=== PATIENT | male | born 1945 | race Caucasian/White ===

== ENCOUNTER 2017-05-31 08:53 | Day surgery (SDC) | payer OTHER, BC ==
[2017-05-28 12:42] VITALS: BMI 35.7
[2017-05-31] MEDS ORDERED: PROPOFOL 20 ML ONE (09:10)
[2017-05-31 11:48] VITALS: TEMP 98.2
[2017-05-31 12:14] VITALS: BP 127/63; PULSE 65
== END 2017-05-31 12:20 | disposition home or self-care (01) ==
LOC: FASU-ENDO 08:53
PROVIDERS: ATTEND Internal Medicine Gastroenterology
PROC: 0DJD8ZZ Inspection of Lower Intestinal Tract, Via Natural or Artificial Opening Endoscopic (ICD-10-PCS; principal; 2017-05-31 11:20)
DX: Z12.11 Encounter for screening for malignant neoplasm of colon (principal); Z86.010 Personal history of colon polyps; K57.30 Diverticulosis of large intestine without perforation or abscess without bleeding

== ENCOUNTER 2018-10-31 10:27 | Emergency (ER) | payer OTHER, BC ==
--- NOTE | 2018-10-31 10:47 | PDOC ---
Attending Attestation - Resident Resident Name: Ricki Corey - ED Attending Attestation I have performed the following: I have examined & evaluated the patient, The case was reviewed & discussed with the resident, I agree w/resident's findings & plan, Exceptions are as noted - HPI HPI: 10/31/18 11:03 73yo male presents ambulatory with his daughter c/o constipation. Pt states last bm was 10 days ago other than an episode of a hard "meatball sized" stool yesterday - which required straining. no f/c. No urinary complaints. No n/v. Pt states a few days after the constipation started he tried miralax and colace and had some diarrhea, so he stopped the meds and started then had the hard bm yesterday. States he feels full and feels he needs to go. Pt denies cp/sob. Pt with dry mm on exam - admits to drinking a lot of coffee and less water. Pt denies flank pain. Pt with hx of prostate sx and hernia repair in the past. - Physicial Exam PE: 10/31/18 11:07 Gen: aaox3, nad, dry mm, cracked tongue heart: +s1s2 reg lungs: cta b/l abd: soft, nt, mild distension, +hyperactive bs ext: +1 pitting edema to LE - Medical Decision Making 10/31/18 10:47 I, Dr. Gilma Wade, DO, attest that this document has been prepared under my direction and personally reviewed by me in its entirety. I further attest, that it accurately reflects all work, treatment, procedures and medical decision -making performed by me. 10/31/18 11:08 a/p: 73yo male with constipation -abd is soft, nt, but distended -pt appears dehydrated -will send labs, ct abd/pelvis - gentle ivf hydration -if constipation on ct will give enema -pt currently not in pain -will monitor and reassess -GI: Dr. Mulligan 10/31/18 13:26 pt currently drinking mag citrate 10/31/18 14:10 pt has had 3 bm in the ED 10/31/18 15:16 pt ambulatory in the ED pt feels better daughter at the bedside- discussed ct imaging including the R pleural effusion/ masslike atelectasis daugther will call pmd and dr. mulligan for follow up stable for dc to home
[2018-10-31 10:53] VITALS: BP 140/87; PULSE 72; TEMP 97.9; BMI 35.5
[2018-10-31] MEDS ORDERED: SODIUM CHLORIDE 0.9% 1000 ML INFUS.BAG IV ONE (11:05)
--- NOTE | 2018-10-31 11:20 | PDOC ---
History of Present Illness - General Chief Complaint: Constipation Stated Complaint: CONSTIPATION Time Seen by Provider: 10/31/18 10:29 History Source: Patient Exam Limitations: No Limitations - History of Present Illness Initial Comments: 10/31/18 11:15 73M who presents with 10 days of constipation. The patient is with his daughter who provides some of the history. The patient states that he last had a "big" bowel movement 3 days ago. He denies abdominal surgery. Pt states that he had a "meatball sized" bowel movement 3 days ago. Denies nausea, vomiting, fever, chills, rectal bleeding. Pt states he has a hx of constipation but tries miralax without avail. Past History - Past Medical History Allergies/Adverse Reactions: Allergies Allergy/AdvReac Type Severity Reaction Status Date / Time aspirin Allergy Verified 10/31/18 10:35 metoprolol Allergy Verified 02/27/12 14:13 ramipril Allergy Verified 02/27/12 14:13 GLEEVAC Allergy Severe Rash Uncoded 05/28/17 12:43 Home Medications: Ambulatory Orders Diazepam [Valium] 5 mg PO QID PRN 02/27/12 Nebivolol HCl [Bystolic] 5 mg PO DAILY 02/27/12 Ziprasidone [Geodon] 160 mg PO HS 02/27/12 Zolpidem Tartrate [Ambien] 10 mg PO HS 02/27/12 Nilotinib HCl [Tasigna] 1 each PO DAILY 05/28/17 Clomipramine HCl [Anafranil] 50 mg PO HS 05/31/17 Acetaminophen [Tylenol Arthritis] 650 mg PO BID PRN 10/31/18 Atorvastatin Ca 10/31/18 Docusate Sodium [Colace] 100 mg PO DAILY 10/31/18 Polyethylene Glycol 3350 [Miralax (For Daily Use) -] 17 gm PO DAILY 10/31/18 Anemia: No Asthma: No Cancer: Yes (CML) Cardiac Disorders: No CVA: No COPD: No CHF: No Dementia: No Diabetes: No GI Disorders: Yes (REFLUX, CHRONIC CONSTIPATION, DIVERTICULOSIS) Disorders: No HTN: Yes Hypercholesterolemia: Yes Liver Disease: No Seizures: No Thyroid Disease: No Other medical history: PLEURAL EFFUSIONS, ARTHRITIS - Surgical History Abdominal Surgery: No Appendectomy: No Cardiac Surgery: No Cholecystectomy: No Lung Surgery: No Neurologic Surgery: No Orthopedic Surgery: No - Suicide/Smoking/Psychosocial Hx Smoking Status: No Smoking History: Former smoker Have you smoked in the past 12 months: No Number of Cigarettes Smoked Daily: 0 Information on smoking cessation initiated: No Hx Alcohol Use: Yes Drug/Substance Use Hx: No Substance Use Type: None Hx Substance Use Treatment: No Review of Systems - Review of Systems Able to Perform ROS?: Yes Comments:: 10/31/18 11:18 GENERAL/CONSTITUTIONAL: No fever or chills. No weakness. HEAD, EYES, EARS, NOSE AND THROAT: No change in vision. No ear pain or discharge. No sore throat. CARDIOVASCULAR: No chest pain, palpitations, or lightheadedness. RESPIRATORY: No cough, wheezing, shortness of breath, or hemoptysis. GASTROINTESTINAL: + for constipation. No nausea, vomiting, diarrhea, or abdominal pain. GENITOURINARY: No dysuria, frequency, hematuria, or change in urination. MUSCULOSKELETAL: No joint or muscle swelling or pain. No neck or back pain. SKIN: No rash or lesions. NEUROLOGIC: No headache, numbness, tingling, focal weakness, loss of consciousness, or change in strength/sensation. Is the patient limited Albanian proficient: No *Physical Exam - Vital Signs Last Vital Signs Temp Pulse Resp BP Pulse Ox 97.9 F 72 18 140/87 96 10/31/18 10:28 10/31/18 10:28 10/31/18 10:28 10/31/18 10:28 10/31/18 10:28 - Physical Exam Comments: 10/31/18 11:18 GENERAL: Well developed, well nourished. Awake and alert. No acute distress. HEENT: Normocephalic, atraumatic. Hearing grossly normal. Moist mucous membranes. PERRLA, EOMI. No conjunctival pallor. Sclera are non-icteric. NECK: Supple. Full ROM. No JVD. CARDIOVASCULAR: Regular rate and rhythm. No murmurs, rubs, or gallops. PULMONARY: No evidence of respiratory distress. Lungs clear to auscultation bilaterally. No wheezing, rales or rhonchi. ABDOMINAL: Soft. Non-tender. Non-distended. No rebound or guarding. MUSCULOSKELETAL: Normal range of motion at all joints. No bony deformities or tenderness. EXTREMITIES: No cyanosis. No clubbing. No edema. No calf tenderness or swelling. SKIN: Warm and dry. Normal capillary refill. No rashes. No jaundice. NEUROLOGICAL: Alert, awake, appropriate. Cranial nerves 2-12 grossly intact. Normal speech. Gait is normal without ataxia. PSYCHIATRIC: Cooperative. Good eye contact. Appropriate mood and affect. ED Treatment Course - LABORATORY CBC & Chemistry Diagram: 10/31/18 11:50 10/31/18 11:50 - RADIOLOGY Radiology Studies Ordered: Category Date Time Status ABDOMEN & PELVIS CT W/O CONTR [CT] Stat CT Scan 10/31/18 10:43 Ordered Medical Decision Making - Medical Decision Making 10/31/18 11:18 73M with h/o recurrent constipation who presents with constipation. Due to 10 days of constipation, will image and obtain labs. Pending labs and imaging. 10/31/18 12:46 CT shows atelectasis w/ effusion in lung. Family knows of effusion d/t h/o CML. Negative for other pathology. Constipation appreciated on CT. Will give mag citrate and reassess. 10/31/18 15:09 Pt noted to have multiple BM's and feels "much better". Will discuss CT results and d/c with PCP f/u. *DC/Admit/Observation/Transfer Diagnosis at time of Disposition: Constipation Qualifiers: Constipation type: unspecified constipation type Qualified Code(s): K59.00 - Constipation, unspecified - Discharge Dispostion Disposition: HOME Condition at time of disposition: Good Decision to Admit order: No - Referrals Referrals: Angélica Mederos MD [Primary Care Provider] - - Patient Instructions Printed Discharge Instructions: DI for Constipation Additional Instructions: Your ER visit is not complete until your follow up with your primary care physician. Please follow up with your primary care physician in 1-2 days. Please also follow up with Dr. Mulligan within 7 days. Please return to the ER if you have any signs or symptoms of chest pain, shortness of breath, uncontrollable fever, chills, nausea, vomiting, numbness, tingling, or weakness in any part of your body, changes in vision, or slurred speech. Please take your medications as prescribed. Please return to the ER if symptoms persist, worsen, or new symptoms arise. - Post Discharge Activity
[2018-10-31 12:29] LABS: ALBUMIN 3.9 g/dl (3.4-5.0); ALK PHOS 111 U/L (45-117); ANION GAP 13 MMOL/L (8-16); BILIRUBIN,TOTAL 0.3 mg/dl (0.2-1); BLOOD UREA NITROGEN 16 mg/dl (7-18); CALCIUM 8.8 mg/dl (8.5-10); CHLORIDE 99 mmol/L (98-107); CO2 25 mmol/L (21-32); CREATININE 1.5 mg/dl (0.55-1.3); GLUCOSE,RANDOM 99 mg/dl (74-106); POTASSIUM 4.6 mmol/L (3.5-5.1); SGOT/AST 38 U/L (15-37); SGPT/ALT 30 U/L (13-61); SODIUM 137 mmol/L (136-145); TOT PROT 7.4 g/dl (6.4-8.2)
[2018-10-31] MEDS ORDERED: MAGNESIUM CITRATE 300 ML BOTTLE PO ONE (12:41)
[2018-10-31 12:47] LABS: BASO % 0.3 % (0-2.0); EOS % 2.5 % (0-4.5); HEMATOCRIT 37.5 % (35.4-49); HEMOGLOBIN 12.2 GM/dl (11.7-16.9); LYMPH % 14.9 % (8-40); MCH 26.5 pg (25.7-33.7); MCHC 32.6 g/dl (32.0-35.9); MEAN CELL VOLUME 81.3 fl (80-96); MONO % 7.6 % (3.8-10.2); NEUT % 74.7 % (42.8-82.8); PLATELET COUNT 284 K/MM3 (134-434); RBC 4.61 M/mm3 (4.00-5.60); RDW 13.7 % (11.9-15.9); WHITE BLOOD COUNT 9.7 K/mm3 (4.0-10.8)
[2018-10-31] MEDS ORDERED: SODIUM PHOSPHATE/NA BIPHOS 133 ML ENEMA PR ONE (12:47)
[2018-10-31] MEDS ORDERED: MAGNESIUM CITRATE 300 ML BOTTLE ONE (12:56)
== END 2018-10-31 15:24 | disposition home or self-care (01) ==
LOC: FER 10:27
PROC: 3E0337Z Introduction of Electrolytic and Water Balance Substance into Peripheral Vein, Percutaneous Approach (ICD-10-PCS; principal; 2018-10-31)
DX: K59.00 Constipation, unspecified (principal); Z85.6 Personal history of leukemia; K21.9 Gastro-esophageal reflux disease without esophagitis; Z87.891 Personal history of nicotine dependence
CPT/HCPCS: 36415; 74176-TC; 80053; 85025; 99283-25; J7030

== ENCOUNTER 2020-07-29 12:27 | Inpatient (IN) | payer OTHER, BC ==
[2020-07-29] MEDS ORDERED: SODIUM CHLORIDE 250 ML IV STA ×2 (12:39→14:00)
[2020-07-29 12:47] VITALS: BMI 38.0
[2020-07-29 12:59] LABS: VENOUS BASE EXCESS -6.8 mmol/L (-2-2); VENOUS O2 SATURATION 32.4 % (70-80); VENOUS PCO2 49.2 mmHg (38-52); VENOUS PH 7.237 (7.310-7.410)
[2020-07-29 13:08] LABS: BASO % 0.2 % (0-2.0); EOS % 0.4 % (0-4.5); HEMATOCRIT 29.6 % (35.4-49); HEMOGLOBIN 9.3 GM/dL (11.7-16.9); LYMPH % 5.9 % (8-40); MCH 25.7 pg (25.7-33.7); MCHC 31.4 g/dl (32.0-35.9); MEAN PLT VOLUME 8.7 fl (7.5-11.1); MONO % 4.3 % (3.8-10.2); NEUT % 89.2 % (42.8-82.8); PLATELET COUNT 292 K/MM3 (134-434); RBC 3.61 M/mm3 (4.00-5.60); RDW 14.7 % (11.9-15.9); WHITE BLOOD COUNT 19.9 K/mm3 (4.0-10.0)
[2020-07-29 13:19] LABS: INR 1.12 (0.83-1.09); PROTHROMBIN TIME (PATIENT) 13.7 SEC (9.7-13.0)
[2020-07-29 13:22] LABS: ACTIVATED PTT 28.3 SECONDS (25.2-36.5)
[2020-07-29 13:26] LABS: CHLORIDE 107 mmol/L (98-107); POTASSIUM 4.2 mmol/L (3.5-5.1); SODIUM 139 mmol/L (136-145)
[2020-07-29 13:28] LABS: CALCIUM 8.1 mg/dL (8.5-10.1)
[2020-07-29 13:29] LABS: ANION GAP 10 MMOL/L (8-16); CO2 22 mmol/L (21-32); GLUCOSE,RANDOM 200 mg/dL (74-106)
[2020-07-29 13:32] LABS: CREATININE 1.6 mg/dL (0.55-1.3); SGOT/AST 9 U/L (15-37); SGPT/ALT 20 U/L (13-61)
[2020-07-29 13:33] LABS: BILIRUBIN,TOTAL 0.2 mg/dL (0.2-1); TOT PROT 6.3 g/dl (6.4-8.2)
[2020-07-29 13:34] LABS: ALK PHOS 93 U/L (45-117)
[2020-07-29] MEDS ORDERED: SODIUM CHLORIDE 500 ML IV STA ×2 (14:00)
[2020-07-29] MEDS ORDERED: PIPERACILLIN/TAZOB 4.5 GM 4.5 GM in DEXTROSE 5%-WATER 100 ML IVPB ONE (14:04)
[2020-07-29] MEDS ORDERED: PIPERACILLIN/TAZOB 4.5 GM 4.5 GM/100 ML BAG IVPB ONE (14:09)
[2020-07-29 14:52] LABS: ANISOCYTOSIS 0; MACROCYTOSIS 0; PLATELET ESTIMATE NORMAL
[2020-07-29] MEDS ORDERED: VANCOMYCIN 1 GM in D5W (PRE-DOCKED) 1,000 MG/250 ML IVPB ONE (18:29)
[2020-07-29] MEDS ORDERED: VANCOMYCIN 1 GRAM (PRE-DOCKED) 1,000 MG/250 ML BAG IVPB ONE (18:38)
[2020-07-29 18:42] LABS: EPI CELLS 21 /uL (0-25.1); HYALINE CASTS 4 /uL (0-3.1); URINE APPEARANCE CLEAR; URINE BACTERIA 81 /uL (0-1359); URINE BILIRUBIN NEGATIVE (NEGATIVE); URINE COLOR YELLOW; URINE GLUCOSE (UA) NEGATIVE (NEGATIVE); URINE KETONE NEGATIVE (NEGATIVE); URINE LEUK ESTERASE TRACE (NEGATIVE); URINE NITRITE NEGATIVE (NEGATIVE); URINE PROTEIN NEGATIVE (NEGATIVE); URINE UROBILINOGEN 0.2 mg/dL (0.2-1.0); URINE WBC 19 /uL (0-25.8)
[2020-07-29 18:43] LABS: URINE RBC 37.7 /uL (0-23.9)
[2020-07-29] MEDS ORDERED: METOCLOPRAMIDE HCL INJECTION 10 MG/2 ML VIAL IVPUSH ONE (18:49)
[2020-07-29] MEDS ORDERED: METOCLOPRAMIDE HCL INJECTION 10 MG/2 ML VIAL ONE (18:54)
[2020-07-29] MEDS ORDERED: MAGNESIUM 1GM/D5W - 1 GM/100 ML IVPB IVPB ONE (18:54)
[2020-07-29] MEDS ORDERED: ACETAMINOPHEN 1000 MG/100 ML VIAL (NON FORMULARY) IVPB ONE (19:09)
[2020-07-29] MEDS ORDERED: ACETAMINOPHEN INJECTION 100 ML IVPB ONE (19:33)
[2020-07-29] MEDS ORDERED: MELATONIN 5 MG TABLETS PO ONE (22:09)
[2020-07-29] MEDS ORDERED: MELATONIN 5 MG TABLETS ONE (22:26)
[2020-07-29] MEDS ORDERED: ZIPRASIDONE 40 MG CAPSULE PO ONE (23:20)
[2020-07-29] MEDS ORDERED: TAMSULOSIN HCL 0.4 MG CAP ONE (23:39)
[2020-07-29] MEDS ORDERED: PANTOPRAZOLE SODIUM 40 MG VIAL IVPUSH ONE (23:41)
[2020-07-29] MEDS: TAMSULOSIN HCL 0.4 MG CAP PO SCH (23:46)
[2020-07-30 00:15] LABS: BASO % 0.3 % (0-2.0); EOS % 0.1 % (0-4.5); HEMOGLOBIN 7.2 GM/dL (11.7-16.9); LYMPH % 7.4 % (8-40); MCH 25.6 pg (25.7-33.7); MCHC 31.5 g/dl (32.0-35.9); MEAN CELL VOLUME 81.4 fl (80-96); MEAN PLT VOLUME 8.5 fl (7.5-11.1); MONO % 7.9 % (3.8-10.2); NEUT % 84.3 % (42.8-82.8); PLATELET COUNT 243 K/MM3 (134-434); RBC 2.82 M/mm3 (4.00-5.60); RDW 14.3 % (11.9-15.9); WHITE BLOOD COUNT 15.8 K/mm3 (4.0-10.0)
[2020-07-30] MEDS ORDERED: PANTOPRAZOLE SODIUM 40 MG VIAL ONE ×2 (00:38→01:11)
[2020-07-30] MEDS ORDERED: POLYETHYLENE GLYCOL 3350 119 GM BTL PO SCH (00:45)
[2020-07-30] MEDS ORDERED: PANTOPRAZOLE SODIUM 40 MG VIAL IVPUSH ONE (00:56)
[2020-07-30 02:29] LABS: ANISOCYTOSIS 1+; MACROCYTOSIS 0; PLATELET ESTIMATE NORMAL
[2020-07-30] MEDS: INSULIN SLIDING SCALE (NOVOLOG) 1 VIAL SQ SCH ×4 (06:27→21:01)
[2020-07-30] MEDS ORDERED: DOCUSATE SODIUM 100 MG CAPSULE (FP) PO SCH (10:00)
[2020-07-30] MEDS ORDERED: PANTOPRAZOLE SODIUM 40 MG VIAL IVPUSH SCH (10:00)
[2020-07-30] MEDS: TAMSULOSIN HCL 0.4 MG CAP PO SCH ×2 (10:34→21:01)
[2020-07-30] MEDS: PANTOPRAZOLE SODIUM 80 MG in SODIUM CHLORIDE 100 ML IVPB SCH ×2 (10:34→21:08)
[2020-07-30] MEDS ORDERED: CLOMIPRAMINE HCL 50 MG PO SCH (22:00)
[2020-07-30] MEDS ORDERED: ZIPRASIDONE 40 MG CAPSULE PO SCH (22:00)
[2020-07-30] MEDS ORDERED: SENNOSIDES 8.6MG TABLET (FP) PO SCH (22:00)
[2020-07-30] MEDS ORDERED: ATORVASTATIN CA 10 MG TABLET (FP) PO SCH (22:00)
[2020-07-30] MEDS ORDERED: ZIPRASIDONE 80 MG CAPSULE PO SCH (22:00)
[2020-07-30] MEDS ORDERED: MELATONIN 5 MG TABLETS PO ONE (23:19)
[2020-07-31] MEDS: PANTOPRAZOLE SODIUM 80 MG in SODIUM CHLORIDE 100 ML IVPB SCH ×2 (05:58→15:30)
[2020-07-31] MEDS: INSULIN SLIDING SCALE (NOVOLOG) 1 VIAL SQ SCH ×4 (06:09→23:31)
[2020-07-31 07:33] LABS: BASO % 0.4 % (0-2.0); EOS % 3.2 % (0-4.5); HEMATOCRIT 21.6 % (35.4-49); HEMOGLOBIN 7.6 GM/dL (11.7-16.9); LYMPH % 10.1 % (8-40); MEAN CELL VOLUME 82.7 fl (80-96); MEAN PLT VOLUME 8.4 fl (7.5-11.1); MONO % 8.2 % (3.8-10.2); NEUT % 78.1 % (42.8-82.8); PLATELET COUNT 172 K/MM3 (134-434); RBC 2.62 M/mm3 (4.00-5.60); RDW 14.5 % (11.9-15.9); WHITE BLOOD COUNT 10.5 K/mm3 (4.0-10.0)
[2020-07-31 07:41] LABS: POTASSIUM 3.7 mmol/L (3.5-5.1)
[2020-07-31 07:45] LABS: ALBUMIN 2.7 g/dl (3.4-5.0)
[2020-07-31 07:47] LABS: CALCIUM 7.9 mg/dL (8.5-10.1)
[2020-07-31 07:50] LABS: BILIRUBIN,TOTAL 0.4 mg/dL (0.2-1)
[2020-07-31 07:51] LABS: TOT PROT 5.2 g/dl (6.4-8.2)
[2020-07-31 08:01] LABS: BLOOD UREA NITROGEN 27.7 mg/dL (7-18)
[2020-07-31] MEDS: TAMSULOSIN HCL 0.4 MG CAP PO SCH ×2 (09:34→21:08)
[2020-07-31 10:04] LABS: COCAINE, UR NEGATIVE ng/ml (CUTOFF=300); METHADONE, UR NEGATIVE ng/ml (CUTOFF=300); OPIATES, URI NEGATIVE ng/ml (CUTOFF=300); PHENCYCLIDINE,URINE NEGATIVE ng/ml (CUTOFF=25)
[2020-07-31 10:15] LABS: URINE AMPHETAMINES NEGATIVE ng/ml (CUTOFF=500); URINE BARBITURATES NEGATIVE ng/ml (CUTOFF=200)
[2020-07-31 10:20] LABS: ANISOCYTOSIS 0; MACROCYTOSIS 0; PLATELET ESTIMATE NORMAL
[2020-07-31 11:14] LABS: URINE BENZODIAZEPINES POSITIVE ng/ml (CUTOFF=200)
[2020-07-31] MEDS ORDERED: diazePAM 5 MG TABLET PO ONE ×2 (13:30→15:31)
[2020-07-31] MEDS: diazePAM 5 MG TABLET PO PRN ×2 (15:30→21:08)
[2020-07-31] MEDS ORDERED: ZIPRASIDONE 40 MG CAPSULE PO SCH ×2 (15:34→22:00)
[2020-07-31] MEDS ORDERED: ZOLPIDEM TARTRATE 5 MG TABLET PO PRN (15:54)
[2020-07-31] MEDS: CLOMIPRAMINE 50 MG PO SCH ×2 (16:23→23:32)
[2020-07-31] MEDS ORDERED: PT OWN MED DRAWER 7, Y5N ONE (16:26)
[2020-07-31] MEDS: FINASTERIDE 5 MG TABLET (FP) PO SCH (16:46)
[2020-07-31] MEDS ORDERED: DEXTROSE 5%-WATER - 50 ML IVPB ONE (16:46)
[2020-07-31] MEDS: CEFTRIAXONE 1 GM in DEXTROSE 5%-WATER - 50 ML IVPB SCH (16:46)
[2020-07-31] MEDS ORDERED: cefTRIAXone SODIUM 1 GM VIAL ONE (16:46)
[2020-07-31] MEDS: ACETAMINOPHEN 325 MG TABLET (FP) PO PRN (21:07)
[2020-07-31] MEDS: ATORVASTATIN CA 20 MG TABLET (FP) PO SCH (21:08)
[2020-07-31] MEDS: ZOLPIDEM TARTRATE 5 MG TABLET PO SCH (21:08)
[2020-08-01] MEDS: PANTOPRAZOLE SODIUM 80 MG in SODIUM CHLORIDE 100 ML IVPB SCH ×3 (02:01→23:02)
[2020-08-01] MEDS ORDERED: NILOTINIB HCL 150 MG PO SCH ×2 (06:00→10:00)
[2020-08-01] MEDS: INSULIN SLIDING SCALE (NOVOLOG) 1 VIAL SQ SCH ×4 (06:13→23:09)
[2020-08-01 07:18] LABS: POTASSIUM 3.7 mmol/L (3.5-5.1)
[2020-08-01 07:24] LABS: BASO % 0.4 % (0-2.0); HEMATOCRIT 21.1 % (35.4-49); HEMOGLOBIN 7.2 GM/dL (11.7-16.9); LYMPH % 12.9 % (8-40); MCH 28.6 pg (25.7-33.7); MCHC 34.1 g/dl (32.0-35.9); MEAN CELL VOLUME 83.7 fl (80-96); MEAN PLT VOLUME 8.2 fl (7.5-11.1); MONO % 7.6 % (3.8-10.2); NEUT % 75.1 % (42.8-82.8); PLATELET COUNT 170 K/MM3 (134-434); RBC 2.52 M/mm3 (4.00-5.60); RDW 14.8 % (11.9-15.9); WHITE BLOOD COUNT 7.6 K/mm3 (4.0-10.0)
[2020-08-01 07:26] LABS: CALCIUM 8.1 mg/dL (8.5-10.1)
[2020-08-01 07:27] LABS: ALBUMIN 2.8 g/dl (3.4-5.0); MAGNESIUM 2.2 mg/dL (1.8-2.4)
[2020-08-01 07:30] LABS: CREATININE 0.9 mg/dL (0.55-1.3)
[2020-08-01 07:33] LABS: BILIRUBIN,TOTAL 1.3 mg/dL (0.2-1); TOT PROT 5.5 g/dl (6.4-8.2)
[2020-08-01 07:35] LABS: BLOOD UREA NITROGEN 12.7 mg/dL (7-18)
[2020-08-01 08:49] LABS: ANISOCYTOSIS 1+; MACROCYTOSIS 1+; OVALOCYTE 1+; PLATELET ESTIMATE NORMAL
[2020-08-01] MEDS ORDERED: DEXTROSE 5%-WATER - 50 ML IVPB ONE (09:11)
[2020-08-01] MEDS ORDERED: cefTRIAXone SODIUM 1 GM VIAL ONE (09:11)
[2020-08-01] MEDS: TAMSULOSIN HCL 0.4 MG CAP PO SCH ×2 (09:33→23:04)
[2020-08-01] MEDS: FINASTERIDE 5 MG TABLET (FP) PO SCH (09:33)
[2020-08-01] MEDS: CEFTRIAXONE 1 GM in DEXTROSE 5%-WATER - 50 ML IVPB SCH (09:34)
[2020-08-01] MEDS ORDERED: amLODIPine BESYLATE 5 MG TABLET (FP) PO SCH (10:00)
[2020-08-01] MEDS ORDERED: NEBIVOLOL 5 MG TABLET (FP) PO SCH (10:00)
[2020-08-01] MEDS ORDERED: PT OWN MED DRAWER 7, Y5N ONE ×6 (11:07→23:14)
[2020-08-01] MEDS ORDERED: ZIPRASIDONE 80 MG CAPSULE PO SCH ×2 (22:00)
[2020-08-01] MEDS ORDERED: ZIPRASIDONE 40 MG CAPSULE PO SCH ×2 (22:00)
[2020-08-01] MEDS: ATORVASTATIN CA 20 MG TABLET (FP) PO SCH (23:05)
[2020-08-01] MEDS: ZOLPIDEM TARTRATE 5 MG TABLET PO SCH (23:05)
[2020-08-01] MEDS: ZIPRASIDONE PO SCH (23:06)
[2020-08-01] MEDS: CLOMIPRAMINE 50 MG PO SCH (23:07)
[2020-08-02 08:04] LABS: BASO % 0.3 % (0-2.0); EOS % 3.3 % (0-4.5); HEMOGLOBIN 8.4 GM/dL (11.7-16.9); LYMPH % 10.7 % (8-40); MCH 28.1 pg (25.7-33.7); MCHC 33.4 g/dl (32.0-35.9); MEAN CELL VOLUME 84.2 fl (80-96); MEAN PLT VOLUME 8.6 fl (7.5-11.1); MONO % 7.9 % (3.8-10.2); NEUT % 77.8 % (42.8-82.8); PLATELET COUNT 199 K/MM3 (134-434); RBC 2.97 M/mm3 (4.00-5.60); RDW 14.5 % (11.9-15.9)
[2020-08-02] MEDS: INSULIN SLIDING SCALE (NOVOLOG) 1 VIAL SQ SCH ×4 (08:13→21:44)
[2020-08-02 08:14] LABS: POTASSIUM 3.6 mmol/L (3.5-5.1)
[2020-08-02 08:16] LABS: CALCIUM 8.1 mg/dL (8.5-10.1)
[2020-08-02 08:17] LABS: ALBUMIN 2.8 g/dl (3.4-5.0); BLOOD UREA NITROGEN 7.4 mg/dL (7-18); MAGNESIUM 2.1 mg/dL (1.8-2.4)
[2020-08-02 08:20] LABS: CREATININE 0.9 mg/dL (0.55-1.3)
[2020-08-02 08:21] LABS: BILIRUBIN,TOTAL 0.6 mg/dL (0.2-1); TOT PROT 5.3 g/dl (6.4-8.2)
[2020-08-02] MEDS ORDERED: cefTRIAXone SODIUM 1 GM VIAL ONE (09:54)
[2020-08-02] MEDS ORDERED: DEXTROSE 5%-WATER - 50 ML IVPB ONE (09:55)
[2020-08-02] MEDS: FINASTERIDE 5 MG TABLET (FP) PO SCH (09:58)
[2020-08-02] MEDS: CEFTRIAXONE 1 GM in DEXTROSE 5%-WATER - 50 ML IVPB SCH (09:58)
[2020-08-02] MEDS: TAMSULOSIN HCL 0.4 MG CAP PO SCH ×2 (10:48→21:50)
[2020-08-02] MEDS: PANTOPRAZOLE SODIUM 80 MG in SODIUM CHLORIDE 100 ML IVPB SCH (10:57)
[2020-08-02 11:00] LABS: ANISOCYTOSIS 1+; MACROCYTOSIS 1+; PLATELET ESTIMATE DECREASED
[2020-08-02] MEDS: PANTOPRAZOLE 40 MG TABLET PO SCH (12:03)
[2020-08-02] MEDS: ATORVASTATIN CA 20 MG TABLET (FP) PO SCH (21:47)
[2020-08-02] MEDS: ZOLPIDEM TARTRATE 5 MG TABLET PO SCH (21:48)
[2020-08-02] MEDS: CLOMIPRAMINE 50 MG PO SCH (21:49)
[2020-08-02] MEDS: ZIPRASIDONE PO SCH (21:49)
[2020-08-03] MEDS: INSULIN SLIDING SCALE (NOVOLOG) 1 VIAL SQ SCH ×2 (06:33→11:00)
[2020-08-03 07:12] LABS: BASO % 0.4 % (0-2.0); EOS % 3.1 % (0-4.5); HEMATOCRIT 25.7 % (35.4-49); HEMOGLOBIN 8.8 GM/dL (11.7-16.9); LYMPH % 9.7 % (8-40); MCH 28.2 pg (25.7-33.7); MCHC 34.1 g/dl (32.0-35.9); MEAN CELL VOLUME 82.9 fl (80-96); MEAN PLT VOLUME 8.3 fl (7.5-11.1); MONO % 8.6 % (3.8-10.2); NEUT % 78.2 % (42.8-82.8); PLATELET COUNT 228 K/MM3 (134-434); RDW 14.5 % (11.9-15.9); WHITE BLOOD COUNT 10.4 K/mm3 (4.0-10.0)
[2020-08-03 07:30] LABS: POTASSIUM 3.5 mmol/L (3.5-5.1)
[2020-08-03 07:48] LABS: CALCIUM 8.3 mg/dL (8.5-10.1)
[2020-08-03 07:49] LABS: ALBUMIN 2.8 g/dl (3.4-5.0); BLOOD UREA NITROGEN 11.8 mg/dL (7-18)
[2020-08-03 07:52] LABS: BILIRUBIN,TOTAL 0.3 mg/dL (0.2-1); CREATININE 1.1 mg/dL (0.55-1.3)
[2020-08-03 07:53] LABS: TOT PROT 5.7 g/dl (6.4-8.2)
[2020-08-03] MEDS: ACETAMINOPHEN 325 MG TABLET (FP) PO PRN ×2 (10:55→20:43)
[2020-08-03] MEDS: PANTOPRAZOLE 40 MG TABLET PO SCH (10:55)
[2020-08-03] MEDS: FINASTERIDE 5 MG TABLET (FP) PO SCH (10:55)
[2020-08-03] MEDS: TAMSULOSIN HCL 0.4 MG CAP PO SCH ×2 (10:55→21:47)
[2020-08-03] MEDS: diazePAM 5 MG TABLET PO PRN ×2 (15:23→21:39)
[2020-08-03] MEDS: ZOLPIDEM TARTRATE 5 MG TABLET PO SCH (21:39)
[2020-08-03] MEDS ORDERED: PT OWN MED DRAWER 7, Y5N ONE ×2 (21:44→21:51)
[2020-08-03] MEDS: ZIPRASIDONE PO SCH (21:46)
[2020-08-03] MEDS: ATORVASTATIN CA 20 MG TABLET (FP) PO SCH (21:47)
[2020-08-03] MEDS: CLOMIPRAMINE 50 MG PO SCH (21:47)
[2020-08-04 08:22] LABS: BASO % 0.5 % (0-2.0); EOS % 3.6 % (0-4.5); HEMATOCRIT 26.2 % (35.4-49); HEMOGLOBIN 8.9 GM/dL (11.7-16.9); LYMPH % 13.9 % (8-40); MCH 28.4 pg (25.7-33.7); MEAN CELL VOLUME 83.3 fl (80-96); MEAN PLT VOLUME 8.5 fl (7.5-11.1); PLATELET COUNT 235 K/MM3 (134-434); RBC 3.15 M/mm3 (4.00-5.60); RDW 15.3 % (11.9-15.9)
[2020-08-04 08:25] LABS: POTASSIUM 3.6 mmol/L (3.5-5.1)
[2020-08-04 08:35] LABS: ALBUMIN 2.8 g/dl (3.4-5.0); CALCIUM 8.5 mg/dL (8.5-10.1)
[2020-08-04 08:36] LABS: BLOOD UREA NITROGEN 14.2 mg/dL (7-18)
[2020-08-04 08:39] LABS: CREATININE 1.1 mg/dL (0.55-1.3)
[2020-08-04 08:40] LABS: BILIRUBIN,TOTAL 1.1 mg/dL (0.2-1); TOT PROT 5.6 g/dl (6.4-8.2)
[2020-08-04] MEDS: PANTOPRAZOLE 40 MG TABLET PO SCH (09:12)
[2020-08-04] MEDS: FINASTERIDE 5 MG TABLET (FP) PO SCH (09:13)
[2020-08-04] MEDS: TAMSULOSIN HCL 0.4 MG CAP PO SCH ×2 (09:13→21:31)
[2020-08-04 10:04] LABS: ANISOCYTOSIS 0; MACROCYTOSIS 0; OVALOCYTE 1+; PLATELET ESTIMATE NORMAL
[2020-08-04] MEDS: diazePAM 5 MG TABLET PO PRN ×2 (10:31→17:55)
[2020-08-04] MEDS: DOCUSATE SODIUM 100 MG CAPSULE (FP) PO SCH ×2 (13:12→21:31)
[2020-08-04] MEDS: ZOLPIDEM TARTRATE 5 MG TABLET PO SCH (21:31)
[2020-08-04] MEDS: ATORVASTATIN CA 20 MG TABLET (FP) PO SCH (21:32)
[2020-08-04] MEDS: ZIPRASIDONE 60 MG CAPSULE PO SCH (21:37)
[2020-08-04] MEDS: CLOMIPRAMINE 50 MG PO SCH (22:47)
[2020-08-05 01:32] LABS: MAGNESIUM 2.1 mg/dL (1.8-2.4)
[2020-08-05] MEDS: DOCUSATE SODIUM 100 MG CAPSULE (FP) PO SCH ×3 (05:47→21:28)
[2020-08-05 08:26] LABS: BASO % 1.1 % (0-2.0); EOS % 3.9 % (0-4.5); HEMATOCRIT 26.7 % (35.4-49); HEMOGLOBIN 8.8 GM/dL (11.7-16.9); LYMPH % 12.9 % (8-40); MCH 27.7 pg (25.7-33.7); MCHC 32.9 g/dl (32.0-35.9); MEAN CELL VOLUME 84.2 fl (80-96); MEAN PLT VOLUME 8.7 fl (7.5-11.1); MONO % 7.7 % (3.8-10.2); NEUT % 74.4 % (42.8-82.8); PLATELET COUNT 257 K/MM3 (134-434); RBC 3.17 M/mm3 (4.00-5.60); RDW 15.2 % (11.9-15.9); WHITE BLOOD COUNT 9.6 K/mm3 (4.0-10.0)
[2020-08-05 08:46] LABS: POTASSIUM 3.7 mmol/L (3.5-5.1)
[2020-08-05 08:54] LABS: CALCIUM 8.3 mg/dL (8.5-10.1)
[2020-08-05 08:55] LABS: ALBUMIN 2.8 g/dl (3.4-5.0); BLOOD UREA NITROGEN 13.7 mg/dL (7-18)
[2020-08-05 08:59] LABS: BILIRUBIN,TOTAL 0.6 mg/dL (0.2-1); CREATININE 1.1 mg/dL (0.55-1.3); TOT PROT 5.7 g/dl (6.4-8.2)
[2020-08-05] MEDS: PANTOPRAZOLE 40 MG TABLET PO SCH (09:01)
[2020-08-05] MEDS: TAMSULOSIN HCL 0.4 MG CAP PO SCH ×2 (09:01→21:28)
[2020-08-05] MEDS: FINASTERIDE 5 MG TABLET (FP) PO SCH (09:01)
[2020-08-05 10:48] LABS: ANISOCYTOSIS 0; HELMET CELLS 0; HOWELL-JOLLY BODIES 0; MACROCYTOSIS 0; OVALOCYTE 0; PLATELET ESTIMATE NORMAL; ROULEAU 0; SICKELED CELLS 0; TARGET CELLS 0; TEAR DROP CELLS 0; TOXIC GRANULATION 0
[2020-08-05 12:07] LABS: MAGNESIUM 2.1 mg/dL (1.8-2.4)
[2020-08-05] MEDS ORDERED: PT OWN MED DRAWER 7, Y5N ONE (21:22)
[2020-08-05] MEDS: diazePAM 5 MG TABLET PO PRN (21:27)
[2020-08-05] MEDS: ZOLPIDEM TARTRATE 5 MG TABLET PO SCH (21:27)
[2020-08-05] MEDS: ATORVASTATIN CA 20 MG TABLET (FP) PO SCH (21:28)
[2020-08-05] MEDS: ZIPRASIDONE 60 MG CAPSULE PO SCH (21:28)
[2020-08-05] MEDS: CLOMIPRAMINE 50 MG PO SCH ×2 (21:29→23:21)
[2020-08-06] MEDS ORDERED: NILOTINIB HCL 150 MG PO SCH (06:00)
[2020-08-06] MEDS: DOCUSATE SODIUM 100 MG CAPSULE (FP) PO SCH ×2 (07:14→13:51)
[2020-08-06 07:52] LABS: BASO % 0.4 % (0-2.0); HEMATOCRIT 26.6 % (35.4-49); HEMOGLOBIN 8.9 GM/dL (11.7-16.9); LYMPH % 11.2 % (8-40); MCH 27.6 pg (25.7-33.7); MCHC 33.3 g/dl (32.0-35.9); MEAN CELL VOLUME 82.8 fl (80-96); MEAN PLT VOLUME 8.3 fl (7.5-11.1); MONO % 11.4 % (3.8-10.2); PLATELET COUNT 264 K/MM3 (134-434); RBC 3.21 M/mm3 (4.00-5.60); WHITE BLOOD COUNT 8.7 K/mm3 (4.0-10.0)
[2020-08-06 08:16] LABS: POTASSIUM 3.9 mmol/L (3.5-5.1)
[2020-08-06 08:18] LABS: ALBUMIN 2.8 g/dl (3.4-5.0); BLOOD UREA NITROGEN 15.8 mg/dL (7-18); CALCIUM 8.3 mg/dL (8.5-10.1); MAGNESIUM 2.2 mg/dL (1.8-2.4)
[2020-08-06 08:23] LABS: BILIRUBIN,TOTAL 0.2 mg/dL (0.2-1); TOT PROT 5.9 g/dl (6.4-8.2)
[2020-08-06] MEDS: ACETAMINOPHEN 325 MG TABLET (FP) PO PRN (08:51)
[2020-08-06] MEDS: FINASTERIDE 5 MG TABLET (FP) PO SCH (09:03)
[2020-08-06] MEDS: PANTOPRAZOLE 40 MG TABLET PO SCH (09:03)
[2020-08-06] MEDS: TAMSULOSIN HCL 0.4 MG CAP PO SCH (09:03)
[2020-08-06] MEDS: diazePAM 5 MG TABLET PO PRN (13:51)
[2020-08-06 14:57] VITALS: BP 118/74; PULSE 81; TEMP 98.2
[2020-08-06] MEDS ORDERED: PT OWN MED DRAWER 7, Y5N ONE (19:11)
== END 2020-08-06 20:28 | DRG 377 ==
LOC: JER 12:27 → JERBED 16:45 → J4W 07-30 02:32
PROVIDERS: ATTEND Nurse Practitioner Acute Care
PROC: 0DB68ZX Excision of Stomach, Via Natural or Artificial Opening Endoscopic, Diagnostic (ICD-10-PCS; 2020-07-30)
PROC: 0DB78ZX Excision of Stomach, Pylorus, Via Natural or Artificial Opening Endoscopic, Diagnostic (ICD-10-PCS; 2020-07-30)
PROC: 3E0G8GC Introduction of Other Therapeutic Substance into Upper GI, Via Natural or Artificial Opening Endoscopic (ICD-10-PCS; 2020-07-30)
PROC: 0W3P8ZZ Control Bleeding in Gastrointestinal Tract, Via Natural or Artificial Opening Endoscopic (ICD-10-PCS; 2020-07-30)
PROC: 0DC68ZZ Extirpation of Matter from Stomach, Via Natural or Artificial Opening Endoscopic (ICD-10-PCS; 2020-07-30)
PROC: 30233N1 Transfusion of Nonautologous Red Blood Cells into Peripheral Vein, Percutaneous Approach (ICD-10-PCS; principal; 2020-07-30 10:15)
DX: K27.4 Chronic or unspecified peptic ulcer, site unspecified, with hemorrhage (principal); G93.41 Metabolic encephalopathy; N17.9 Acute kidney failure, unspecified; N39.0 Urinary tract infection, site not specified; E87.2 Acidosis; J90 Pleural effusion, not elsewhere classified; C92.11 Chronic myeloid leukemia, BCR/ABL-positive, in remission; G21.11 Neuroleptic induced parkinsonism; E78.5 Hyperlipidemia, unspecified; K59.09 Other constipation; F41.9 Anxiety disorder, unspecified; N40.1 Benign prostatic hyperplasia with lower urinary tract symptoms; E66.9 Obesity, unspecified; Z68.30 Body mass index [BMI] 30.0-30.9, adult; G24.01 Drug induced subacute dyskinesia; G25.2 Other specified forms of tremor; I12.9 Hypertensive chronic kidney disease with stage 1 through stage 4 chronic kidney disease, or unspecified chronic kidney disease; N18.9 Chronic kidney disease, unspecified; K21.9 Gastro-esophageal reflux disease without esophagitis; K57.90 Diverticulosis of intestine, part unspecified, without perforation or abscess without bleeding; R31.29 Other microscopic hematuria; I95.9 Hypotension, unspecified; T43.595A Adverse effect of other antipsychotics and neuroleptics, initial encounter; R26.81 Unsteadiness on feet
CPT/HCPCS: 36415; 36430; 70450-TC; 71045-TC-FY; 74176-TC; 76775-TC; 76856-TC; 80053; 80307; 81003; 82272; 82607; 82728; 82747; 82803; 82962; 83036; 83540; 83550; 83605; 83615; 83735; 84153; 84484; 85014; 85025; 85610; 85730; 86140; 86769; 86780; 86850; 86900; 86901; 86922; 87040; 87086; 87804; 93005; 93010; 97116-GP; 97161-GP; 99285-25; C9803; J0131; P9058; U0003

== ENCOUNTER 2020-09-16 10:47 | Emergency (ER) | payer OTHER, BC ==
[2020-09-16 11:11] VITALS: TEMP 98.2; BMI 34.9
[2020-09-16 12:50] LABS: BASO % 0.5 % (0-2.0); HEMATOCRIT 36.7 % (35.4-49); HEMOGLOBIN 11.7 GM/dL (11.7-16.9); LYMPH % 6.5 % (8-40); MCH 25.3 pg (25.7-33.7); MCHC 31.9 g/dl (32.0-35.9); MEAN CELL VOLUME 79.5 fl (80-96); MEAN PLT VOLUME 9.3 fl (7.5-11.1); MONO % 6.4 % (3.8-10.2); NEUT % 85.6 % (42.8-82.8); PLATELET COUNT 273 K/MM3 (134-434); RBC 4.62 M/mm3 (4.00-5.60); RDW 14.4 % (11.9-15.9); WHITE BLOOD COUNT 8.8 K/mm3 (4.0-10.0)
[2020-09-16 12:53] LABS: URINE APPEARANCE CLEAR; URINE BILIRUBIN NEGATIVE (NEGATIVE); URINE COLOR YELLOW; URINE GLUCOSE (UA) NEGATIVE (NEGATIVE); URINE KETONE NEGATIVE (NEGATIVE); URINE LEUK ESTERASE NEGATIVE (NEGATIVE); URINE NITRITE NEGATIVE (NEGATIVE); URINE PROTEIN NEGATIVE (NEGATIVE); URINE UROBILINOGEN 0.2 mg/dL (0.2-1.0)
[2020-09-16 13:39] LABS: CHLORIDE 106 mmol/L (98-107); POTASSIUM 3.7 mmol/L (3.5-5.1); SODIUM 142 mmol/L (136-145)
[2020-09-16 13:42] LABS: ALBUMIN 3.5 g/dl (3.4-5.0); ANION GAP 7 MMOL/L (8-16); BLOOD UREA NITROGEN 16.1 mg/dL (7-18); CALCIUM 8.9 mg/dL (8.5-10.1); CO2 29 mmol/L (21-32); GLUCOSE,RANDOM 155 mg/dL (74-106)
[2020-09-16 13:45] LABS: CREATININE 1.3 mg/dL (0.55-1.3); SGOT/AST 11 U/L (15-37); SGPT/ALT 20 U/L (13-61)
[2020-09-16 13:47] LABS: BILIRUBIN,TOTAL 0.5 mg/dL (0.2-1); TOT PROT 7.4 g/dl (6.4-8.2)
[2020-09-16 13:48] LABS: ALK PHOS 130 U/L (45-117)
[2020-09-16 13:51] LABS: N-TERMINAL BNP 121.3 pg/ml (5-450)
[2020-09-16 15:02] VITALS: BP 125/66; PULSE 90
== END 2020-09-16 15:24 | disposition home or self-care (01) ==
LOC: JER 10:47
DX: R06.02 Shortness of breath (principal)
CPT/HCPCS: 36415; 71045-TC-FY; 80053; 81003; 83880; 84484; 85025; 86850; 86900; 86901; 87086; 87804; 93005; 93010; 99285-25; C9803; U0003

== ENCOUNTER 2020-10-10 04:42 | Day surgery (SDC) | payer OTHER, BC ==
[2020-10-07 15:12] VITALS: BMI 33.9
[2020-10-10 10:00] VITALS: TEMP 96.2
[2020-10-10 11:04] VITALS: BP 138/78; PULSE 69
[2020-10-11] MEDS ORDERED: PANTOPRAZOLE 40 MG TABLET PO SCH (10:00)
== END 2020-10-10 11:05 | disposition home or self-care (01) ==
LOC: JASU-ENDO 04:42
PROVIDERS: ATTEND Internal Medicine Gastroenterology
PROC: 0DB78ZX Excision of Stomach, Pylorus, Via Natural or Artificial Opening Endoscopic, Diagnostic (ICD-10-PCS; principal; 2020-10-10 10:00)
DX: K25.0 Acute gastric ulcer with hemorrhage (principal)
CPT/HCPCS: 88305-TC; 88342-TC

== ENCOUNTER 2021-01-21 04:43 | Day surgery (SDC) | payer OTHER, BC ==
[2021-01-16 15:43] VITALS: BMI 31.3
[2021-01-21 10:02] VITALS: PULSE 100
[2021-01-21 11:20] VITALS: BP 127/78; TEMP 98
== END 2021-01-21 10:35 | disposition home or self-care (01) ==
LOC: JASU-ENDO 04:43
PROVIDERS: ATTEND Internal Medicine Gastroenterology
PROC: 0DB78ZX Excision of Stomach, Pylorus, Via Natural or Artificial Opening Endoscopic, Diagnostic (ICD-10-PCS; principal; 2021-01-21 09:00)
DX: K25.9 Gastric ulcer, unspecified as acute or chronic, without hemorrhage or perforation (principal); I25.10 Atherosclerotic heart disease of native coronary artery without angina pectoris; I10 Essential (primary) hypertension
CPT/HCPCS: 88305-TC; 88342-TC